=== PATIENT | female | born 1990 | race African-American/Black ===

== ENCOUNTER 2018-06-22 04:40 | Inpatient (IN) | payer MEDICAID ==
[2018-06-21 13:17] LABS: APPEARANCE,URINE CLEAR; BILIRUBIN,URINE NEGATIVE (NEGATIVE); COLOR,URINE YELLOW; GLUCOSE, URINE NEGATIVE (NEGATIVE); KETONES,URINE NEGATIVE (NEGATIVE); LEUKOCYTE ESTERASE,URINE NEGATIVE (NEGATIVE); NITRITE,URINE NEGATIVE (NEGATIVE); PROTEIN,URINE NEGATIVE (NEGATIVE); UROBILINOGEN,URINE NEGATIVE mg/dL (<2.0)
[2018-06-21 13:34] LABS: ABSOLUTE EOSINOPHILS # (AUTO) 0.1 10^3/uL (0.0-0.6); ABSOLUTE LYMPHOCYTES (AUTO) 1.6 10^3/uL (0.5-4.7); ABSOLUTE MONOCYTES (AUTO) 0.5 10^3/uL (0.1-1.4); ABSOLUTE NEUT (AUTO) 5.9 10^3/uL (1.7-8.2); BASOPHILS % (AUTO) 0.4 % (0-2); EOSINOPHILS % (AUTO) 0.6 % (0-6); HEMATOCRIT 36.1 % (36.0-47.0); HEMOGLOBIN 12.4 g/dL (12.0-15.5); LYMPHOCYTES % (AUTO) 20.1 % (13-45); MEAN CORPUSCULAR HEMOGLOBIN 30.6 pg (27.0-33.4); MEAN CORPUSCULAR HGB CONC 34.4 g/dL (32.0-36.0); MEAN CORPUSCULAR VOLUME 89 fl (80-97); MONOCYTES % (AUTO) 6.1 % (3-13); PLATELET COUNT 171 10^3/uL (150-450); RED BLOOD COUNT 4.06 10^6/uL (3.72-5.28); RED CELL DISTRIBUTION WIDTH 13.5 % (11.5-14.0); SEGMENTED NEUTROPHILS % (AUTO) 72.8 % (42-78); TOTAL CELLS COUNTED % (AUTO) 100 %; WHITE BLOOD COUNT 8.1 10^3/uL (4.0-10.5)
[2018-06-21 13:35] LABS: URINE AMPHETAMINES SCREEN NEGATIVE; URINE BARBITURATES SCREEN NEGATIVE; URINE BENZODIAZEPINES SCREEN NEGATIVE; URINE COCAINE SCREEN NEGATIVE; URINE MARIJUANA (THC) SCREEN NEGATIVE; URINE METHADONE SCREEN NEGATIVE; URINE PHENCYCLIDINE SCREEN NEGATIVE
[2018-06-22] MEDS ORDERED: LACTATED RINGERS 1000 ML IV PRN (05:00)
[2018-06-22] MEDS ORDERED: CEFAZOLIN 1 GM/D5W RTU 1 GM/50 ML RTUPB IV PRN (05:00)
[2018-06-22] MEDS ORDERED: RINGERS SOLUTION,LACTATED 2,000 ML IV PRN (05:00)
[2018-06-22] MEDS ORDERED: LIDOCAINE 0.5% INJ-PF (5 MG/ML) 50 ML SDV SUBCUT PRN (05:00)
[2018-06-22] MEDS ORDERED: MEPERIDINE HCL/PF INJ 25 MG/1 ML DISP.SYRIN IV PRN (06:55)
[2018-06-22] MEDS ORDERED: PROMETHAZINE HCL INJ 25 MG/1 ML VIAL IV PRN ×3 (06:55→08:24)
[2018-06-22] MEDS ORDERED: FENTANYL CITRATE INJ/PF 100 MCG/2 ML AMPUL IV PRN ×3 (06:55)
[2018-06-22] MEDS ORDERED: ONDANSETRON HCL INJ/PF 4 MG/2 ML SDV IV PRN (06:55)
[2018-06-22] MEDS ORDERED: MORPHINE SULFATE 10 MG/ML INJ IV PRN (06:55)
[2018-06-22] MEDS ORDERED: DIPHENHYDRAMINE HCL 50 MG/ML VIAL IV PRN (06:55)
[2018-06-22] MEDS ORDERED: MIDAZOLAM 2 MG/2 ML INJ ONE (06:59)
[2018-06-22] MEDS ORDERED: OXYTOCIN 10 UNIT/ML VIAL ONE (06:59)
[2018-06-22] MEDS ORDERED: FENTANYL CITRATE INJ/PF 100 MCG/2 ML AMPUL ONE (06:59)
[2018-06-22] MEDS ORDERED: ACETAMINOPHEN 1,000 MG/100 ML RTUPB IV PRN (08:24)
[2018-06-22] MEDS ORDERED: OXYCODONE-ACETAMINOPHEN 5-325 MG TABLET PO PRN (08:24)
[2018-06-22] MEDS ORDERED: OXYTOCIN/NORMAL SALINE 20 UNIT/1,000 ML RTUINJ IV PRN (08:24)
[2018-06-22] MEDS ORDERED: ACETAMINOPHEN 325 MG TABLET PO PRN (08:24)
[2018-06-22] MEDS ORDERED: DIPH/PERTUSS(ACELL)/TETANUS VAC/PF 0.5 ML SYR (>=10YO) IM PRN (08:24)
[2018-06-22] MEDS ORDERED: MEASLES,MUMPS&RUBELLA VACC/PF 0.5 ML VIAL SUBCUT PRN (08:24)
--- NOTE | 2018-06-22 08:27 | PDOC DELIVERY SUMMARY ---
Delivery Summary - Maternal Hx : III Hx # Term Pregnancies: 2 JOSSIE: 06/27/18 Gestational Age: 39 +2 Risk Factors: Previous Ruptured Membranes: AROM Time of Rupture: 08:00 Fluids: Clear - Delivery Labor: Not In Labor Presentation: Vertex Heart Rate Monitoring: Done Pre-Operatively Support Person Present: Yes Location: OR : Scheduled, Repeat Placenta: Within Normal Limits Delivery of Placenta Date: 06/22/18 Delivery of Placenta Time: 08:02 - Medications Type of Anesthesia:: Spinal - Assess and Care Baby 1 Female Delivery of Infant Date: 06/22/18 Delivery of Time: 08:01 at 1 minute: 9 at 5 minutes: 9 Preprinted Number On Band: [id number] Infant Skin to Skin: Yes Skin to Skin (Mins): 5 To Nursery At: 08:11 [facility] Person[facility] Nurs[facility] RN: OSMAR CROCKER MD: RAN ORNELAS
[2018-06-22] MEDS ORDERED: ACETAMINOPHEN 1,000 MG/100 ML RTUPB IV ONE (08:30)
--- NOTE | 2018-06-22 08:48 | OPERATIVE REPORT E ---
Operative Report NAME: RAPHAEL RIVAS : 1990 AGE: 28Y DATE OF SURGERY: 06/22/2018 ROOM: 225 PREOPERATIVE DIAGNOSIS: INTRAUTERINE AT TERM WITH PRIOR CESARIAN SECTION. POSTOPERATIVE DIAGNOSIS: INTRAUTERINE AT TERM WITH PRIOR CESARIAN SECTION. OPERATION: Repeat low transverse with delivery of viable female, 6 pounds and 7 ounces. Apgars of 8 and 9. TISSUE REMOVED Placenta. ESTIMATED BLOOD LOSS: Less than 800 mL. ANESTHESIA: Spinal. PROCEDURE: The patient was placed in the supine position and rolled on her right side, prepped and draped in a sterile fashion. A Pfannenstiel incision was made through an existing Pfannenstiel eschar. The incision was extended through the subcutaneous tissue and fascia sharp with dissection. Fascia was sharply divided. Rectus muscle was bluntly and sharply divided. Parietal peritoneum was entered with sharp dissection. The uterus was nicked in the midline and extended bilaterally. Infant was then delivered through the uterine abdominal incision. Nose and mouth were suctioned with bulb syringe, cord was clamped, and was passed from the table. Placenta was manually extracted. The uterus was closed using 2 layers using 0-Vicryl. The first running a stitch and the second a Lembert stitch imbricating the first layer. A small amount of bleeding was noted in the midportion on the left, controlled with multiple [id number] sutures of 2-0 Vicryl. Hemostasis was noted. The fascia closed with 0 Vicryl, and the skin was closed with subcutaneous absorbable stefanie. The patient's urine remained clear throughout the procedure. She was taken to Recovery in good condition infant to [facility] in good condition. DICTATING PHYSICIAN: Leo ORNELAS M.D. [id number] PHY#: [id number] ID: [id number] JOB#: [id number] ACCT: [id number] cc:Leo ORNELAS M.D. >
[2018-06-22] MEDS ORDERED: EPHEDRINE SULFATE INJ 50 MG/1 ML AMPULE ONE (09:44)
[2018-06-22] MEDS: DOCUSATE SODIUM 100 MG CAPSULE PO SCH ×2 (11:06→17:11)
[2018-06-22] MEDS: PRENATAL VITAMIN W DHA CAPSULE PO SCH (11:06)
[2018-06-22] MEDS: OXYCODONE-ACETAMINOPHEN 5-325 MG TABLET PO PRN ×2 (11:07→17:11)
[2018-06-22] MEDS: KETOROLAC TROMETHAMINE INJ/PF 30 MG/1 ML SDV IV SCH ×2 (13:35→23:04)
[2018-06-22] MEDS ORDERED: KETOROLAC TROMETHAMINE 60 MG/2 ML SDV ONE (13:42)
[2018-06-22] MEDS ORDERED: PHENYLEPHRINE HCL INJ/PF 10 MG/1 ML SDV ONE (13:42)
[2018-06-22] MEDS ORDERED: METOCLOPRAMIDE HCL INJ/PF 10 MG/2 ML SDV ONE (13:42)
[2018-06-22] MEDS ORDERED: ONDANSETRON HCL INJ/PF 4 MG/2 ML SDV ONE (13:42)
[2018-06-22] MEDS ORDERED: DEXAMETHASONE SOD PHOSPHATE INJ 4 MG/1 ML VIAL ONE (13:42)
[2018-06-22] MEDS: SIMETHICONE 80 MG TAB.CHEW PO PRN (17:11)
[2018-06-22 21:57] LABS: HEMATOCRIT 28.2 % (36.0-47.0); MEAN CORPUSCULAR HEMOGLOBIN 30.9 pg (27.0-33.4); MEAN CORPUSCULAR HGB CONC 34.5 g/dL (32.0-36.0); MEAN CORPUSCULAR VOLUME 90 fl (80-97); PLATELET COUNT 172 10^3/uL (150-450); RED BLOOD COUNT 3.15 10^6/uL (3.72-5.28); RED CELL DISTRIBUTION WIDTH 13.4 % (11.5-14.0)
[2018-06-22 21:59] LABS: HEMOGLOBIN 9.7 g/dL (12.0-15.5); WHITE BLOOD COUNT 17.5 10^3/uL (4.0-10.5)
[2018-06-23] MEDS: SIMETHICONE 80 MG TAB.CHEW PO PRN (03:07)
[2018-06-23] MEDS: OXYCODONE-ACETAMINOPHEN 5-325 MG TABLET PO PRN ×3 (03:07→20:31)
[2018-06-23] MEDS: KETOROLAC TROMETHAMINE INJ/PF 30 MG/1 ML SDV IV SCH ×3 (06:03→21:42)
[2018-06-23] MEDS: DOCUSATE SODIUM 100 MG CAPSULE PO SCH ×2 (10:47→18:16)
[2018-06-23] MEDS: PRENATAL VITAMIN W DHA CAPSULE PO SCH (10:48)
--- NOTE | 2018-06-23 12:37 | PDOC PROGRESS REPORT ---
Subjective-OB Progress Note for:: 06/23/18 - POD #1, s/p rpt , doing well, breast feeding Physical Exam (OB) Vital Signs: Temp Pulse Resp BP Pulse Ox 97.7 F 82 16 95/49 L 99 06/23/18 07:53 06/23/18 07:53 06/23/18 07:53 06/23/18 07:53 06/23/18 07:53 Intake & Output 06/22/18 06/23/18 06/24/18 06:59 06:59 06:59 Intake Total 1500 Output Total 350 3025 Balance -350 -1525 Weight 88.451 kg - General General Appearance: Appears well, Alert In distress: None - Dressing Removed: No - Medipore clean, dry and intact Incision: Dressing - Lochia Lochia Amount: Small 10-25 ml Lochia Color: Rubra/Red - Abdomen Description: Tender, Soft, Round Hernia Present: No Fundal Description: Firm, Midline Fundal Height: u/u - u/2 - Respiratory Respiratory Status: No respiratory distress Breath sounds: Clear - Cardiovascular Rhythm: Regular Heart Sounds: Normal auscultation - Abdominal Inspection: Normal Distension: No distension Tenderness: Nontender - Genitourinary Genitourinary Note: voiding - Extremities Upper extremity: Normal inspection Lower extremities: Normal inspection - Neurological Cognition: Normal Orientation: AAOx4 - Psychological Associated symptoms: Normal affect, Normal mood - Skin Skin Temperature: Warm Skin Moisture: Dry Objective-Diagnostic Laboratory: 06/22/18 21:35 06/22/18 21:35 WBC 17.5 H D RBC 3.15 L Hgb 9.7 L D Hct 28.2 L MCV 90 MCH 30.9 MCHC 34.5 RDW 13.4 Plt Count 172 Assessment and Plan(PN) - Assessment and Plan (1) Status post repeat low transverse section Is this a current diagnosis for this admission?: Yes (2) Anemia affecting Qualifiers: Trimester: third trimester Qualified Code(s): O99.013 - Anemia complicating , third trimester Is this a current diagnosis for this admission?: Yes - Time Spent with Patient Time with patient: Less than 15 minutes Medications reviewed and adjusted accordingly: Yes - Disposition Anticipated Discharge: Home Within: within 48 hours
[2018-06-23] MEDS ORDERED: FERROUS SULFATE 325 MG TABLET PO ONE (18:00)
[2018-06-23] MEDS: FERROUS SULFATE 325 MG TABLET PO SCH (20:07)
[2018-06-24] MEDS: OXYCODONE-ACETAMINOPHEN 5-325 MG TABLET PO PRN ×3 (03:39→21:06)
[2018-06-24] MEDS: KETOROLAC TROMETHAMINE INJ/PF 30 MG/1 ML SDV IV SCH ×3 (09:20→21:05)
[2018-06-24] MEDS: PRENATAL VITAMIN W DHA CAPSULE PO SCH (09:21)
[2018-06-24] MEDS: DOCUSATE SODIUM 100 MG CAPSULE PO SCH ×2 (09:21→17:29)
[2018-06-24] MEDS: FERROUS SULFATE 325 MG TABLET PO SCH (09:21)
[2018-06-24] MEDS: SIMETHICONE 80 MG TAB.CHEW PO PRN (09:22)
--- NOTE | 2018-06-24 10:09 | PDOC PROGRESS REPORT ---
Subjective-OB Progress Note for:: 06/24/18 Subjective: reports c/s pain controlled with percocet and ibuprofen, using percocet minimally. c/o gas pain moderate, states she is passing gas and walking frequently. going well. bleeding slowing. feels the need to stay overnight. Physical Exam (OB) Vital Signs: Temp Pulse Resp BP Pulse Ox 98.1 F 99 18 105/59 L 100 06/24/18 08:34 06/24/18 08:34 06/24/18 08:34 06/24/18 08:34 06/24/18 08:34 Intake & Output 06/23/18 06/24/18 06/25/18 06:59 06:59 06:59 Intake Total 1500 Output Total 3025 Balance -1525 - Incision: Open - Abdomen Description: Tender, Soft, Round Hernia Present: No Fundal Description: Firm, Midline Fundal Height: u/u - u/2 - Extremities Calf: Normal Objective-Diagnostic Laboratory: 06/22/18 21:35 Assessment and Plan(PN) - Assessment and Plan (1) Anemia affecting Qualifiers: Trimester: third trimester Qualified Code(s): O99.013 - Anemia complicating , third trimester Is this a current diagnosis for this admission?: Yes (2) Status post repeat low transverse section Is this a current diagnosis for this admission?: Yes - Time Spent with Patient Time with patient: Less than 15 minutes Medications reviewed and adjusted accordingly: Yes - Disposition Anticipated Discharge: Home Within: within 24 hours
[2018-06-24] MEDS ORDERED: SIMETHICONE 80 MG TAB.CHEW PO SCH (10:15)
[2018-06-24] MEDS: IBUPROFEN 800 MG TABLET PO SCH ×3 (12:15→23:51)
[2018-06-25] MEDS: OXYCODONE-ACETAMINOPHEN 5-325 MG TABLET PO PRN ×3 (02:13→13:20)
[2018-06-25] MEDS: IBUPROFEN 800 MG TABLET PO SCH ×2 (05:21→11:28)
[2018-06-25] MEDS: KETOROLAC TROMETHAMINE INJ/PF 30 MG/1 ML SDV IV SCH ×2 (08:06→14:50)
--- NOTE | 2018-06-25 10:27 | PDOC DISCHARGE SUMMARY ---
Final Diagnosis Discharge Date: 06/25/18 - Final Diagnosis (1) Anemia affecting Is this a current diagnosis for this admission?: Yes (2) Status post repeat low transverse section Is this a current diagnosis for this admission?: Yes Discharge Data - Discharge Medication Prescriptions: Ibuprofen [Motrin 800 mg Tablet] 800 mg PO Q6HP PRN #90 tablet PRN Reason: Oxycodone HCl/Acetaminophen [Percocet 5-325 mg Tablet] 1 tab PO Q4HP PRN #30 tablet PRN Reason: Home Medications: No122/Iron/Folic Acid [ Multi Tablet] 1 each PO DAILY 06/21/18 Docusate Sodium [Colace 100 mg Capsule] 100 mg PO BID capsule 06/25/18 Ferrous Sulfate [Feosol 325 mg Tablet] 325 mg PO DAILY tablet 06/25/18 Ibuprofen [Motrin 800 mg Tablet] 800 mg PO Q6HP PRN #90 tablet 06/25/18 Oxycodone HCl/Acetaminophen [Percocet 5-325 mg Tablet] 1 tab PO Q4HP PRN #30 tablet 06/25/18 Reason(s) for Admission: Ceasarean Section-Repeat Procedures: NST Intrapartum Procedure(s): : Low Cervical, Transverse - Diagnosis Test Laboratory: Temp Pulse Resp BP Pulse Ox 98.2 F 78 18 109/50 L 97 06/25/18 07:57 06/25/18 07:57 06/25/18 07:57 06/25/18 07:57 06/25/18 07:57 06/21/18 06/21/18 06/22/18 12:00 12:05 21:35 RBC 4.06 3.15 L Hgb 12.4 9.7 L D Hct 36.1 28.2 L Urine Opiates Screen NEGATIVE - Discharge information/Instructions Discharge Activity: Balance Activity w/Rest, Pelvic Rest Discharge Diet: Regular Disposition: HOME, SELF-CARE Follow up with: [facility] in: 1, Weeks
[2018-06-25] MEDS: FERROUS SULFATE 325 MG TABLET PO SCH (11:28)
[2018-06-25] MEDS: PRENATAL VITAMIN W DHA CAPSULE PO SCH (11:28)
[2018-06-25] MEDS: DOCUSATE SODIUM 100 MG CAPSULE PO SCH (11:28)
[2018-06-25 14:26] VITALS: BP 98/47
== END 2018-06-25 15:25 | disposition home or self-care (01) | DRG 788 ==
LOC: 2S 04:40 → EEVIPCON 07:45
PROVIDERS: ADMIT Obstetrics & Gynecology Gynecology; ATTEND Obstetrics & Gynecology Gynecology
PROC: 4A1HXCZ Monitoring of Products of Conception, Cardiac Rate, External Approach (ICD-10-PCS; 2018-06-22)
PROC: 3E0234Z Introduction of Serum, Toxoid and Vaccine into Muscle, Percutaneous Approach (ICD-10-PCS; 2018-06-22)
PROC: 10D00Z1 Extraction of Products of Conception, Low, Open Approach (ICD-10-PCS; principal; 2018-06-22 07:45)
DX: O34.211 Maternal care for low transverse scar from previous cesarean delivery (principal); O99.02 Anemia complicating childbirth; D64.9 Anemia, unspecified; Z37.0 Single live birth; Z23 Encounter for immunization
CPT/HCPCS: 1961; 36415; 80307; 81001; 82962; 85025; 85027; 86850; 86900; 86901; 90715; 94799; J0131; J1100; J1885; J2250; J2370; J2405; J2590; J2765; J3010; J3490; J7120

== ENCOUNTER 2019-07-26 07:01 | Inpatient (IN) | payer MEDICAID ==
[2019-07-26] MEDS ORDERED: RINGERS SOLUTION,LACTATED 1,000 ML IV PRN ×2 (07:22→11:09)
[2019-07-26] MEDS ORDERED: CEFAZOLIN 1 GM/D5W RTU 1 GM/50 ML RTUPB IV PRN (07:25)
[2019-07-26 07:41] LABS: APPEARANCE,URINE CLEAR; BILIRUBIN,URINE NEGATIVE (NEGATIVE); COLOR,URINE YELLOW; GLUCOSE, URINE NEGATIVE (NEGATIVE); KETONES,URINE NEGATIVE (NEGATIVE); LEUKOCYTE ESTERASE,URINE NEGATIVE (NEGATIVE); NITRITE,URINE NEGATIVE (NEGATIVE); PROTEIN,URINE NEGATIVE (NEGATIVE); URINE SPECIFIC GRAVITY 1.017; UROBILINOGEN,URINE NEGATIVE mg/dL (<2.0)
[2019-07-26 07:55] LABS: URINE AMPHETAMINES SCREEN NEGATIVE; URINE BARBITURATES SCREEN NEGATIVE; URINE BENZODIAZEPINES SCREEN NEGATIVE; URINE COCAINE SCREEN NEGATIVE; URINE MARIJUANA (THC) SCREEN NEGATIVE; URINE METHADONE SCREEN NEGATIVE; URINE PHENCYCLIDINE SCREEN NEGATIVE
[2019-07-26 08:08] LABS: ABSOLUTE BASOPHILS # (AUTO) 0.1 10^3/uL (0.0-0.2); ABSOLUTE EOSINOPHILS # (AUTO) 0.1 10^3/uL (0.0-0.6); ABSOLUTE LYMPHOCYTES (AUTO) 2.2 10^3/uL (0.5-4.7); ABSOLUTE MONOCYTES (AUTO) 0.6 10^3/uL (0.1-1.4); ABSOLUTE NEUT (AUTO) 6.1 10^3/uL (1.7-8.2); BASOPHILS % (AUTO) 0.7 % (0-2); EOSINOPHILS % (AUTO) 0.9 % (0-6); HEMATOCRIT 36.1 % (36.0-47.0); HEMOGLOBIN 12.5 g/dL (12.0-15.5); LYMPHOCYTES % (AUTO) 24.3 % (13-45); MEAN CORPUSCULAR HEMOGLOBIN 30.8 pg (27.0-33.4); MEAN CORPUSCULAR HGB CONC 34.7 g/dL (32.0-36.0); MEAN CORPUSCULAR VOLUME 89 fl (80-97); MONOCYTES % (AUTO) 6.6 % (3-13); PLATELET COUNT 144 10^3/uL (150-450); RED BLOOD COUNT 4.07 10^6/uL (3.72-5.28); RED CELL DISTRIBUTION WIDTH 13.1 % (11.5-14.0); SEGMENTED NEUTROPHILS % (AUTO) 67.5 % (42-78); TOTAL CELLS COUNTED % (AUTO) 100 %; WHITE BLOOD COUNT 9.1 10^3/uL (4.0-10.5)
[2019-07-26] MEDS ORDERED: PHENYLEPHRINE HCL INJ/PF 10 MG/1 ML SDV ONE (09:15)
[2019-07-26] MEDS ORDERED: GLYCOPYRROLATE INJ 0.4 MG/2 ML VIAL ONE (09:15)
[2019-07-26] MEDS ORDERED: OXYTOCIN 10 UNIT/ML VIAL ONE (09:15)
[2019-07-26] MEDS ORDERED: MIDAZOLAM 2 MG/2 ML INJ ONE (09:16)
[2019-07-26] MEDS ORDERED: ONDANSETRON HCL INJ/PF 4 MG/2 ML SDV ONE (09:16)
[2019-07-26] MEDS ORDERED: DIPHENHYDRAMINE HCL 50 MG/ML VIAL ONE (09:16)
[2019-07-26] MEDS ORDERED: OXYTOCIN/NORMAL SALINE 20 UNIT/1,000 ML RTUINJ ONE (09:16)
[2019-07-26] MEDS ORDERED: FENTANYL CITRATE INJ/PF 100 MCG/2 ML AMPUL ONE (09:16)
[2019-07-26] MEDS ORDERED: KETOROLAC TROMETHAMINE INJ/PF 30 MG/1 ML SDV ONE (09:17)
[2019-07-26] MEDS ORDERED: MORPHINE SULFATE 10 MG/ML INJ IV PRN (10:22)
[2019-07-26] MEDS ORDERED: FENTANYL CITRATE INJ/PF 100 MCG/2 ML AMPUL IV PRN ×3 (10:22)
[2019-07-26] MEDS ORDERED: PROMETHAZINE HCL INJ 25 MG/1 ML VIAL IV PRN ×3 (10:22→11:09)
[2019-07-26] MEDS ORDERED: MEPERIDINE HCL/PF INJ 25 MG/1 ML DISP.SYRIN IV PRN (10:22)
[2019-07-26] MEDS ORDERED: OXYCODONE-ACETAMINOPHEN 5-325 MG TABLET PO PRN ×3 (10:22→11:09)
[2019-07-26] MEDS ORDERED: DIPHENHYDRAMINE HCL 50 MG/ML VIAL IV PRN (10:22)
[2019-07-26] MEDS ORDERED: METHYLENE BLUE 50 MG/10 ML AMPULE ONE (10:29)
[2019-07-26] MEDS ORDERED: OXYTOCIN/NORMAL SALINE 20 UNIT/1,000 ML RTUINJ IV PRN (11:09)
[2019-07-26] MEDS ORDERED: DIPH/PERTUSS(ACELL)/TETANUS VAC/PF 0.5 ML SYR (>=10YO) IM PRN (11:09)
[2019-07-26] MEDS ORDERED: ACETAMINOPHEN 325 MG TABLET PO PRN (11:09)
[2019-07-26] MEDS ORDERED: MEASLES,MUMPS&RUBELLA VACC/PF 0.5 ML VIAL SUBCUT PRN (11:09)
[2019-07-26] MEDS ORDERED: SIMETHICONE 80 MG TAB.CHEW PO PRN (11:09)
--- NOTE | 2019-07-26 11:16 | Operative Report ---
Operative Report DATE OF SURGERY: 07/26/19 PREOPERATIVE DIAGNOSIS: She requested a tubal ligation and a repeat to prevent risk of uterine rupture and for surgical sterilization POSTOPERATIVE DIAGNOSIS: Same OPERATION: Repeat via low transverse uterine incision and tubal ligation with bilateral Filshie clip application SURGEON: ESDRAS VAUGHAN ANESTHESIA: Spinal TISSUE REMOVED OR ALTERED: Placenta COMPLICATIONS: None ESTIMATED BLOOD LOSS: 250 INTRAOPERATIVE FINDINGS: Viable infant crying at delivery. Normal uterus tubes and ovaries. Very dense fascial scarring. PROCEDURE: Patient was taken to the OR and placed in supine position after her spinal anesthesia. She is prepared and draped in sterile fashion. Marquez was placed for drainage of the bladder. Low transverse incision was made and carried down the level of the fascia. The fascial incision was made with knife and extended bilaterally with curved Wolf scissors. The fascia was off the rectus muscles using sharp and blunt dissection. The rectus muscles are in the midline. The peritoneum was entered without incident. Bladder blade was placed in uterine segment was identified. A low transverse incision was made creating a bladder flap. Bladder blade was placed low transverse uterine incision was made with the knife and extended with fingertips. The baby was delivered with some fundal pressure. Mouth and nose were suctioned free. The cord is doubly clamped and cut. Baby is passed off to the hazardous materials waste technician in attendance. The placenta was manually extracted with trailing membranes. The uterus was externalized wrapped in a moist lap sponge. Uterine contents wiped free. Uterus was closed with a running locking layer of 0 chromic suture using the second layer to imbricate the first completing a double layer closure of the uterus. The serosa was closed with a running 2-0 chromic stitch. Filshie clip was placed bilaterally at the mid isthmic portion of each fallopian tube. The bladder was filled with a dilute solution of methylene blue and there was no evidence of injury to the bladder. The pelvis was irrigated and suctioned free of fluid the uterus was replaced in the abdomen. The abdominal wall peritoneum was closed with running 2-0 chromic stitch. Fascia was closed with a running 0 Vicryl in 2 segments. Kermit's layer was brought together with 0 plain gut stitch and the skin was closed with running subcuticular 4-0 undyed Vicryl stitch. The wound was dressed mother and baby did well.
[2019-07-26] MEDS ORDERED: EPHEDRINE SULFATE INJ 50 MG/1 ML AMPULE ONE (11:21)
[2019-07-26] MEDS ORDERED: ACETAMINOPHEN 1,000 MG/100 ML RTUPB IV ONE (12:07)
[2019-07-26] MEDS ORDERED: ACETAMINOPHEN 1,000 MG/100 ML RTUPB IV PRN (12:30)
[2019-07-26] MEDS ORDERED: HYDROMORPHONE HCL INJ/PF 2 MG/ML AMPULE ONE (12:47)
[2019-07-26] MEDS: HYDROMORPHONE HCL INJ/PF 2 MG/ML AMPULE IV PRN ×2 (12:51→17:01)
[2019-07-26] MEDS ORDERED: KETOROLAC TROMETHAMINE INJ/PF 30 MG/1 ML SDV IV SCH (14:00)
[2019-07-26] MEDS: OXYCODONE-ACETAMINOPHEN 5-325 MG TABLET PO PRN ×2 (14:57→22:15)
[2019-07-26] MEDS: DOCUSATE SODIUM 100 MG CAPSULE PO SCH (18:04)
[2019-07-26] MEDS: KETOROLAC TROMETHAMINE INJ/PF 30 MG/1 ML SDV IV SCH (18:05)
[2019-07-27] MEDS: KETOROLAC TROMETHAMINE INJ/PF 30 MG/1 ML SDV IV SCH (01:04)
[2019-07-27] MEDS: OXYCODONE-ACETAMINOPHEN 5-325 MG TABLET PO PRN ×5 (05:48→22:41)
[2019-07-27 07:22] LABS: HEMOGLOBIN 10.7 g/dL (12.0-15.5); MEAN CORPUSCULAR HGB CONC 34.5 g/dL (32.0-36.0); MEAN CORPUSCULAR VOLUME 90 fl (80-97); PLATELET COUNT 124 10^3/uL (150-450); RED BLOOD COUNT 3.45 10^6/uL (3.72-5.28); WHITE BLOOD COUNT 9.3 10^3/uL (4.0-10.5)
[2019-07-27] MEDS: PRENATAL VITAMIN W DHA CAPSULE PO SCH (09:47)
[2019-07-27] MEDS: DOCUSATE SODIUM 100 MG CAPSULE PO SCH ×2 (09:47→17:22)
--- NOTE | 2019-07-27 10:20 | PDOC PROGRESS REPORT ---
Subjective-OB Progress Note for:: 07/27/19 Subjective: Pt doing well, no concerns. She reports light bleeding reg diet and voiding without difficulty. Physical Exam (OB) Vital Signs: Temp Pulse Resp BP Pulse Ox 98.5 F 72 16 119/69 100 07/27/19 07:53 07/27/19 07:53 07/27/19 07:53 07/27/19 07:53 07/27/19 07:53 Intake & Output 07/26/19 07/27/19 07/28/19 06:59 06:59 06:59 Intake Total 1160 Output Total 1505 Balance -345 - Dressing Removed: Yes - opsite Incision: Dressing Closure Type: Opsite - Lochia Lochia Amount: Small 10-25 ml Lochia Color: Rubra/Red - Abdomen Description: Soft, Round Hernia Present: No Fundal Description: Firm, Midline Fundal Height: u/u - u/2 Objective-Diagnostic Laboratory: 07/27/19 07:06 07/27/19 07:06 WBC 9.3 RBC 3.45 L Hgb 10.7 L Hct 31.0 L MCV 90 MCH 31.0 MCHC 34.5 RDW 13.0 Plt Count 124 L Assessment and Plan(PN) - Assessment and Plan (1) Anemia affecting Qualifiers: Trimester: unspecified trimester Qualified Code(s): O99.019 - Anemia complicating , unspecified trimester Is this a current diagnosis for this admission?: Yes (2) Status post repeat low transverse section Is this a current diagnosis for this admission?: Yes - Time Spent with Patient Time with patient: Less than 15 minutes Medications reviewed and adjusted accordingly: Yes - Disposition Anticipated Discharge: Home Within: within 24 hours
[2019-07-27] MEDS: IBUPROFEN 800 MG TABLET PO SCH ×2 (11:41→17:22)
[2019-07-28] MEDS: IBUPROFEN 800 MG TABLET PO SCH ×3 (00:24→11:28)
[2019-07-28] MEDS: OXYCODONE-ACETAMINOPHEN 5-325 MG TABLET PO PRN ×3 (03:10→11:28)
--- NOTE | 2019-07-28 09:54 | PDOC DISCHARGE SUMMARY ---
Impression - Admit/DC Date/PCP Admission Date/Primary Care Provider: 07/26/19 07:01 ESDRAS VAUGHAN MD Discharge Date: 07/28/19 - Discharge Diagnosis (1) Anemia affecting Is this a current diagnosis for this admission?: Yes (2) Status post repeat low transverse section Is this a current diagnosis for this admission?: Yes - Additional Information Resuscitation Status: Full Code Discharge Diet: Regular Discharge Activity: Balance Activity w/Rest, No Lifting Over 10 Pounds, No Lifting/Push/Pulling, Pelvic Rest, No tub bath Referrals: ESDRAS VAUGHAN MD [Primary Care Provider] - Prescriptions: Oxycodone HCl/Acetaminophen [Percocet 5-325 mg Tablet] 1 tab PO Q4HP PRN #20 tablet PRN Reason: For Pain Scale 3-5 Ibuprofen [Motrin 800 mg Tablet] 800 mg PO Q8HP PRN #60 tablet PRN Reason: For Pain Scale 1-3 Home Medications: No122/Iron/Folic Acid [ Multi Tablet] 1 each PO DAILY 06/21/18 Docusate Sodium [Colace 100 mg Capsule] 100 mg PO BID capsule 06/25/18 Ferrous Sulfate [Feosol 325 mg Tablet] 325 mg PO DAILY tablet 06/25/18 Ibuprofen [Motrin 800 mg Tablet] 800 mg PO Q8HP PRN #60 tablet 07/28/19 Oxycodone HCl/Acetaminophen [Percocet 5-325 mg Tablet] 1 tab PO Q4HP PRN #20 tablet 07/28/19 Results Laboratory Results: WBC 9.3 10^3/uL (4.0-10.5) 07/27/19 07:06 RBC 3.45 10^6/uL (3.72-5.28) L 07/27/19 07:06 Hgb 10.7 g/dL (12.0-15.5) L 07/27/19 07:06 Hct 31.0 % (36.0-47.0) L 07/27/19 07:06 MCV 90 fl (80-97) 07/27/19 07:06 MCH 31.0 pg (27.0-33.4) 07/27/19 07:06 MCHC 34.5 g/dL (32.0-36.0) 07/27/19 07:06 RDW 13.0 % (11.5-14.0) 07/27/19 07:06 Plt Count 124 10^3/uL (150-450) L 07/27/19 07:06 Lymph % (Auto) 24.3 % (13-45) 07/26/19 07:41 Avery % (Auto) 6.6 % (3-13) 07/26/19 07:41 Eos % (Auto) 0.9 % (0-6) 07/26/19 07:41 Baso % (Auto) 0.7 % (0-2) 07/26/19 07:41 Absolute Neuts (auto) 6.1 10^3/uL (1.7-8.2) 07/26/19 07:41 Absolute Lymphs (auto) 2.2 10^3/uL (0.5-4.7) 07/26/19 07:41 Absolute Monos (auto) 0.6 10^3/uL (0.1-1.4) 07/26/19 07:41 Absolute Eos (auto) 0.1 10^3/uL (0.0-0.6) 07/26/19 07:41 Absolute Basos (auto) 0.1 10^3/uL (0.0-0.2) 07/26/19 07:41 Seg Neutrophils % 67.5 % (42-78) 07/26/19 07:41 Urine Color YELLOW 07/26/19 07:30 Urine Appearance CLEAR 07/26/19 07:30 Urine pH 6.0 (5.0-9.0) 07/26/19 07:30 Ur Specific Williams 1.017 07/26/19 07:30 Urine Protein NEGATIVE mg/dL (NEGATIVE) 07/26/19 07:30 Urine Glucose (UA) NEGATIVE mg/dL (NEGATIVE) 07/26/19 07:30 Urine Ketones NEGATIVE mg/dL (NEGATIVE) 07/26/19 07:30 Urine Blood NEGATIVE (NEGATIVE) 07/26/19 07:30 Urine Nitrite NEGATIVE (NEGATIVE) 07/26/19 07:30 Urine Bilirubin NEGATIVE (NEGATIVE) 07/26/19 07:30 Urine Urobilinogen NEGATIVE mg/dL (<2.0) 07/26/19 07:30 Ur Leukocyte Esterase NEGATIVE (NEGATIVE) 07/26/19 07:30 Urine Ascorbic Acid 20 (NEGATIVE) H 07/26/19 07:30 Urine Opiates Screen NEGATIVE 07/26/19 07:30 Urine Methadone Screen NEGATIVE 07/26/19 07:30 Ur Barbiturates Screen NEGATIVE 07/26/19 07:30 Ur Phencyclidine Scrn NEGATIVE 07/26/19 07:30 Ur Amphetamines Screen NEGATIVE 07/26/19 07:30 U Benzodiazepines Scrn NEGATIVE 07/26/19 07:30 Urine Cocaine Screen NEGATIVE 07/26/19 07:30 U Marijuana (THC) Screen NEGATIVE 07/26/19 07:30 Blood Type A POSITIVE 07/26/19 07:41 Antibody Screen NEGATIVE 07/26/19 07:41
[2019-07-28] MEDS: PRENATAL VITAMIN W DHA CAPSULE PO SCH (10:05)
[2019-07-28] MEDS: DOCUSATE SODIUM 100 MG CAPSULE PO SCH (10:05)
[2019-07-28 10:21] VITALS: BP 120/70
--- NOTE | 2019-08-14 10:24 | PDOC DELIVERY SUMMARY ---
Delivery Summary - Maternal Hx : V Hx # Term Pregnancies: 4 Hx Total # of Abortions (Sponateous & Elective): 1 JOSSIE: 07/26/19 Ruptured Membranes: AROM Time of Rupture: 10:26 Fluids: Clear - Delivery Presentation: Vertex Heart Rate Monitoring: Done Pre-Operatively Support Person Present: Yes - FATHER OF CHILD Location: OR : Scheduled Placenta: Within Normal Limits Delivery of Placenta Date: 07/26/19 Delivery of Placenta Time: 10:30 - Medications Type of Anesthesia:: Spinal - Assess and Care Baby 1 Male Delivery of Infant Date: 07/26/19 Delivery of Infant Time: 10:27 at 1 minute: 9 at 5 minutes: 9 Preprinted Number On Band: [id number] Skin to Skin: No To Nursery At: 10:37 Mode of Transport: Bassinet Delivery Weight: 29.9 Delivery Length: 19 in - Delivery Personnel Nursery RN: AARON SEGURA RN: TRICIA PRETTY MD: ESDRAS VAUGHAN
== END 2019-07-28 14:02 | disposition home or self-care (01) | DRG 785 ==
LOC: 2S 07:01
PROVIDERS: ADMIT Obstetrics & Gynecology; ATTEND Obstetrics & Gynecology
PROC: 0UL70CZ Occlusion of Bilateral Fallopian Tubes with Extraluminal Device, Open Approach (ICD-10-PCS; 2019-07-26)
PROC: 10D00Z1 Extraction of Products of Conception, Low, Open Approach (ICD-10-PCS; principal; 2019-07-26 09:30)
DX: O34.211 Maternal care for low transverse scar from previous cesarean delivery (principal); N85.8 Other specified noninflammatory disorders of uterus; Z37.0 Single live birth; Z3A.39 39 weeks gestation of pregnancy; Z30.2 Encounter for sterilization
CPT/HCPCS: 1961; 36415; 59025; 80307; 81005; 85025; 85027; 86850; 86900; 86901; 94760; 94799; C1713; J0131; J0690; J1170; J1200; J1885; J2250; J2370; J2405; J2590; J3010; J3490; Q9968